=== PATIENT | female | born 1950 | race Caucasian/White ===

== ENCOUNTER 2021-04-08 01:22 | Day surgery (SDC) | payer MEDICARE, SELFPAY ==
[2021-04-02 15:20] VITALS: BMI 28.3
[2021-04-08 07:18] VITALS: BP 150/91; PULSE 91; RESP 16; TEMP 36.9; O2SAT 98; BMI 27.3
--- NOTE | 2021-04-08 07:22 | WPDGICN ---
Assessment and Plan Assessment and plan (1) Encounter for screening colonoscopy: Code(s): Z12.11 - Encounter for screening for malignant neoplasm of colon Status: Acute Assessment and Plan: Patient presents for screening colonoscopy. She has had colon polyps on previous exams. Further recommendations will be given after endoscopy. GI Consult Note Consult date/time: 04/08/21 07:22 HPI: Shea Jones is a 70 year old female Presents for screening colonoscopy. Patient states that her current weight appetite bowel movements are normal. She denies abdominal pain. She has had no bleeding. Family history is noncontributory. Patient has previously had colon polyps removed from the colon 2015 and again in 2007. These have been benign. She presents today for follow-up examination. Patient reports a recent past medical history of breast carcinoma. She states she had 1 lymph node positive after lymph node dissection and had a prior lumpectomy. She currently is felt free of disease but is being closely watched. Review of Systems Review of Systems: All systems reviewed & are unremarkable except as noted in HPI and below PMFSH Past Medical History Medical History Breast cancer Hyperlipidemia Osteopenia Vaginal delivery x3 Surgical History Surgical History History of lumpectomy x2, right breast with lymph node removal Family History Family History Mother Hypertension Carcinoma of colon Sibling Hypertension Family history of diabetes mellitus in first degree relative Father Family history of elevated blood lipids Family history of coronary artery disease, Onset Age: 50 Patient's father is Grandparent Cerebrovascular accident, Onset Age: 90 Social History Social History Smoking status: Never smoker Second hand tobacco smoke exposure: No Alcohol intake: never Substance use: never Substance use type: does not use Living arrangements: [facility] Spiritual care concerns: No Meds Home Medications and Allergies Home Medications Medication Instructions Recorded Confirmed Type calcium carb 300 mg-D3 800 2 tablet PO DAILY tablet 12/26/20 04/02/21 History unit-mag ox 25 mg-marketing copywriter 0.5 mg-minor-Zn tablet exemestane 25 mg tablet 25 mg PO DAILY 12/26/20 04/02/21 History lisinopril 10 mg tablet 10 mg PO DAILY 12/26/20 04/02/21 History vitamin E 200 unit capsule 200 unit PO DAILY 12/26/20 04/02/21 History drnhbyut-ibbfd-zhmzk-CF borate 1 tablet PO DAILY 04/02/21 04/02/21 History [Move Free [facility]] Allergies Allergy/AdvReac Type Severity Reaction Status Date / Time No Known Allergies Allergy Verified 04/08/21 07:16 Vital Signs Vital Signs - 24 hr 04/08/21 07:18 Temperature 98.5 F Pulse Rate 91 Respiratory Rate 16 Blood Pressure 150/91 H Pulse Oximetry 98 Exam Narrative: Physical exam reveals patient to be alert. Vital signs stable. HEENT exam is unremarkable. Patient is anicteric. Lungs are clear to auscultation and percussion. Heart is without murmur or extra sounds. Abdominal exam bowel sounds are present soft nontender with no hepatosplenomegaly. Digital external rectal exam is normal.
[2021-04-08] MEDS: LACTATED RINGERS 1,000 ML 150 ML IV CONT (07:27)
--- NOTE | 2021-04-08 07:38 | P.PNAN_ITS ---
Anes - Initial Pre Proc Eval Procedure: Operation Date: 04/08/21 08:30 Proposed Procedures p Screening Colonoscopy - Kimani Sutton MD Date/Time: 04/08/21 07:38 Surgeon: Kimani Sutton MD Pre Op Diagnosis: hx of colon polyps Z86.010 Patient Data Age: 70 Gender: F Height: 1.63 m Weight: 72.1 kg Last Vital Signs Temp 98.5 F 04/08/21 07:18 Pulse 91 04/08/21 07:18 Resp 16 04/08/21 07:18 BP 150/91 H 04/08/21 07:18 Pulse Ox 98 04/08/21 07:18 Allergies Allergy/AdvReac Type Severity Reaction Status Date / Time No Known Allergies Allergy Verified 04/08/21 07:16 Home Medications Medication Instructions Recorded Confirmed Type calcium carb 300 mg-D3 800 2 tablet PO DAILY tablet 12/26/20 04/02/21 History unit-mag ox 25 mg-copier field service technician 0.5 mg-minor-Zn tablet exemestane 25 mg tablet 25 mg PO DAILY 12/26/20 04/02/21 History lisinopril 10 mg tablet 10 mg PO DAILY 12/26/20 04/02/21 History vitamin E 200 unit capsule 200 unit PO DAILY 12/26/20 04/02/21 History flwigtks-yvtmo-srsgf-CF borate 1 tablet PO DAILY 04/02/21 04/02/21 History [Move Free [facility]] Patient hx anesthesia problems: none Family hx anesthesia problems: none PMFSH Past Medical History Medical History Breast cancer Hyperlipidemia Osteopenia Vaginal delivery x3 Surgical History Surgical History History of lumpectomy x2, right breast with lymph node removal Family History Family History Mother Hypertension Carcinoma of colon Sibling Hypertension Family history of diabetes mellitus in first degree relative Father Family history of elevated blood lipids Family history of coronary artery disease, Onset Age: 50 Patient's father is Grandparent Cerebrovascular accident, Onset Age: 90 Social History Social History Smoking status: Never smoker Second hand tobacco smoke exposure: No Alcohol intake: never Substance use: never Substance use type: does not use Living arrangements: [facility] Spiritual care concerns: No Anes - Eval Final PreProcedure Day of Procedure 04/08/21 07:38 Patient weight: overweight Heart: regular rate and rhythm Lungs: clear to auscultation Airway: Mallampati scale class II Neurological: alert and oriented Last oral intake: >/= 8 hours ASA classification: III Emergent: no Anesthetic plan: proceed Anesthesia type and monitoring: general GIVS and standard monitoring Informed Consent: The patient's anesthetic plan and its attendant risks and benefits were discussed with the patient/family/POA. Questions were solicited and answers provided to the satisfaction of the patient/family/POA.
[2021-04-08 08:50] VITALS: BP 116/70; PULSE 75; RESP 15; O2SAT 99
[2021-04-08 09:00] VITALS: BP 115/79; PULSE 71; RESP 14; O2SAT 98
[2021-04-08 09:10] VITALS: BP 127/89; PULSE 69; RESP 18; O2SAT 99
== END 2021-04-08 09:15 | disposition home or self-care (01) ==
PROVIDERS: PCP Student in an Organized Health Care Education/Training Program; Visit Provider Internal Medicine Gastroenterology
PROC: 0DJD8ZZ Inspection of Lower Intestinal Tract, Via Natural or Artificial Opening Endoscopic (ICD-10-PCS; CPT 45378; principal; 2021-04-08 08:30)
DX: Z12.11 Encounter for screening for malignant neoplasm of colon (principal); K63.5 Polyp of colon; K64.8 Other hemorrhoids; E78.5 Hyperlipidemia, unspecified; M19.90 Unspecified osteoarthritis, unspecified site; Z85.3 Personal history of malignant neoplasm of breast
CPT/HCPCS: 45385; 88305; J2001; J2704; J7120